=== PATIENT | male | born 1995 | race Caucasian/White ===

== ENCOUNTER 2018-09-20 20:43 | Emergency (ER) | payer MEDICAID ==
[~2018-09-20] VITALS: Ht 180.3 cm; Wt 66.7 kg
[2018-09-20 20:46] VITALS: BP_SYST 114
--- NOTE | 2018-09-20 20:51 | NUR ---
Patient triaged and placed in waiting room. VSS and patient appears in no acute distress at this time. Accompanied by family, awaiting available bed, and MD notified of need for MSE.
--- NOTE | 2018-09-20 22:25 | NUR ---
Patient to ER bed 5 to gown for evaluation. Side rails up. Report given to JACOB Patterson.
--- NOTE | 2018-09-21 00:06 | NUR ---
ER Dr. Anderson at bedside examining patient.
--- NOTE | 2018-09-21 00:10 | NUR ---
Pt BIB family to ED C/O chest wall pain that started 2 days ago. Off and on since. No N/V No significant med Hx. No other injuries and or complaints noted. VSS no s/s of acute distress. Resting on gurney with rails up
[2018-09-21 00:35] VITALS: BP_SYST 114
--- NOTE | 2018-09-21 00:35 | NUR ---
Patient given written and verbal discharge instructions and verbalizes understanding. ER MD discussed with patient the results and treatment provided. Patient in stable condition. ID arm band removed. Rx of Ibuprofen given. Patient educated on pain management and to follow up with PMD. Pain Scale 0/10. Opportunity for questions provided and answered. Medication side effect fact sheet provided.
== END 2018-09-21 00:35 | disposition home or self-care (01) ==
LOC: SED 20:43
DX: S23.9XXA Sprain of unspecified parts of thorax, initial encounter (principal); X50.0XXA Overexertion from strenuous movement or load, initial encounter; Y93.89 Activity, other specified; Y92.69 Other specified industrial and construction area as the place of occurrence of the external cause; Y99.8 Other external cause status
CPT/HCPCS: 93005; 99283

== ENCOUNTER 2020-09-07 06:53 | Emergency (ER) | payer MEDICAID ==
[~2020-09-07] VITALS: Ht 180.3 cm; Wt 68.0 kg
[2020-09-07 07:01] VITALS: BP_SYST 109
--- NOTE | 2020-09-07 07:01 | NUR ---
Patient ambulatory to bed 7 for evaluation
[2020-09-07] MEDS ORDERED: NACL 0.9% 1,000 ML IV ONE (07:30)
[2020-09-07] MEDS ORDERED: ONDANSETRON HCL 4 MG/2 ML VIAL IVP ONE (07:30)
[2020-09-07] MEDS ORDERED: MAG HYDROX/AL HYDROX/SIMETH 30 ML, DICYCLOMINE HCL 20 MG, LIDOCAINE VISCOUS 2% 15ML (PO... PO ONE ×3 (07:30)
[2020-09-07 07:43] LABS: BASOPHILS % (AUTO) 0.3 % (0.0-2.0); EOSINOPHILS # (AUTO) 0.1 K/uL (0.0-0.4); EOSINOPHILS % (AUTO) 0.7 % (0.0-4.0); HEMATOCRIT 44.2 % (36-54); HEMOGLOBIN 14.8 g/dL (14.0-18.0); LYMPHOCYTES # (AUTO) 2.3 K/uL (1.0-5.5); LYMPHOCYTES % (AUTO) 24.3 % (20.5-51.5); MEAN CORPUSCULAR HEMOGLOBIN 30 pg (27-31); MEAN CORPUSCULAR HGB CONC 34 % (32-36); MEAN CORPUSCULAR VOLUME 89 fL (79.0-98.0); MONOCYTES # (AUTO) 0.9 K/uL (0.0-1.0); NEUTROPHILS # (AUTO) 6.1 K/uL (1.8-7.7); NEUTROPHILS % (AUTO) 64.7 % (40.0-70.0); PLATELET COUNT (AUTO) 264 K/uL (130-430); RED BLOOD CELL COUNT(AUTO) 4.97 MIL/uL (4.2-6.2); RED CELL DISTRIBUTION WIDTH 13.8 % (9.0-15.0); WHITE BLOOD COUNT (AUTO) 9.4 K/uL (4.8-10.8)
--- NOTE | 2020-09-07 07:43 | NUR ---
X-ray: Patient placed into [facility] for transport to dept for exam.
--- NOTE | 2020-09-07 07:47 | NUR ---
PIV: 22G PLACED INTO LEFT AC, FLASH NOTED NO SIGNS OF INFILTRATION PRESENT. PT TOLERATED WELL. IV FLUIDS RUNNING PER ORDER.
[2020-09-07 07:53] LABS: CALCIUM 8.9 mg/dL (8.4-11.0); CREATININE 0.89 mg/dL (0.55-1.30); POTASSIUM 3.8 mmol/L (3.5-5.1)
[2020-09-07 07:59] LABS: ALBUMIN 4.1 g/dL (3.4-4.8); TOTAL BILIRUBIN 0.7 mg/dL (0.0-1.0)
--- NOTE | 2020-09-07 08:19 | NUR ---
MD AT BEDSIDE: ASSESSING PATIENT.
--- NOTE | 2020-09-07 08:44 | NUR ---
RN ROUNDS: PATIENT REMAINS STABLE IN NO ACUTE DISTRESS AND OR DISCOMFORT. BED LOW AND LOCKED FOR SAFETY.
[2020-09-07] MEDS ORDERED: ONDA-8 TL (08:59)
[2020-09-07] MEDS ORDERED: OMEP40CA13 PO (08:59)
[2020-09-07] MEDS ORDERED: ANT30 PO (09:01)
--- NOTE | 2020-09-07 09:11 | NUR ---
Patient given written and verbal discharge instructions and verbalizes understanding. ER MD discussed with patient the results and treatment provided. Patient in stable condition. ID arm band removed. IV catheter removed intact and dressing applied, no active bleeding. Rx of given. Patient educated on pain management and to follow up with PMD. Pain Scale 0/10 Opportunity for questions provided and answered. Medication side effect fact sheet provided.
[2020-09-07 09:13] VITALS: BP_SYST 127
== END 2020-09-07 09:11 | disposition home or self-care (01) ==
LOC: SED 06:53
DX: K29.70 Gastritis, unspecified, without bleeding (principal); Z79.899 Other long term (current) drug therapy
CPT/HCPCS: 36415; 74018; 80053; 83690; 85025; 96374; 99284; J2001; J2405

== ENCOUNTER 2020-10-04 00:27 | Emergency (ER) | payer MEDICAID ==
[~2020-10-04] VITALS: Ht 180.3 cm; Wt 68.0 kg
[~2020-10-04 00:27] MED LIST: ANT30 PO; OMEP40CA13 PO; ONDA-8 TL
[2020-10-04 00:30] VITALS: BP_SYST 123
[2020-10-04 01:18] VITALS: BP_SYST 122
== END 2020-10-04 01:18 | disposition home or self-care (01) ==
LOC: SED 00:27
DX: K13.79 Other lesions of oral mucosa (principal); K13.0 Diseases of lips; Z79.899 Other long term (current) drug therapy
CPT/HCPCS: 99281